=== PATIENT | female | born 1940 | race Caucasian/White ===

== ENCOUNTER 2018-02-25 15:45 | Emergency (ER) | payer OTHER, BC ==
[~2018-02-25] VITALS: Ht 172.7 cm; Wt 93.0 kg
[2018-02-25] MEDS ORDERED: AUGMENTIN 875-1 EACH PO (18:04)
[2018-02-25 18:11] VITALS: BP 144/76
== END 2018-02-25 18:23 | disposition home or self-care (01) ==
LOC: ER 15:45
DX: S81.852A Open bite, left lower leg, initial encounter (principal); W54.0XXA Bitten by dog, initial encounter; Z96.652 Presence of left artificial knee joint; Z86.73 Personal history of transient ischemic attack (TIA), and cerebral infarction without residual deficits; Y93.89 Activity, other specified; Y92.89 Other specified places as the place of occurrence of the external cause; Y99.8 Other external cause status; S81.832A Puncture wound without foreign body, left lower leg, initial encounter

== ENCOUNTER → 2018-03-03 | Outpatient (CLI) | payer OTHER, BC ==
[~2018-03-03] MED LIST: AUGMENTIN 875-1 EACH PO
== END ==
LOC: HYPER 07:05
DX: S71.112A Laceration without foreign body, left thigh, initial encounter (principal); S81.801A Unspecified open wound, right lower leg, initial encounter; I10 Essential (primary) hypertension; E78.4 Other hyperlipidemia; Z86.73 Personal history of transient ischemic attack (TIA), and cerebral infarction without residual deficits; Z96.652 Presence of left artificial knee joint; Z90.710 Acquired absence of both cervix and uterus; Z98.49 Cataract extraction status, unspecified eye; X58.XXXA Exposure to other specified factors, initial encounter; W54.0XXA Bitten by dog, initial encounter; Y93.89 Activity, other specified; Y92.89 Other specified places as the place of occurrence of the external cause; Y99.8 Other external cause status

== ENCOUNTER → 2018-03-18 | Outpatient (CLI) | payer OTHER, BC | LOC: HYPER 06:52 | DX: S71.152A Open bite, left thigh, initial encounter (principal); S81.851A Open bite, right lower leg, initial encounter; I10 Essential (primary) hypertension; E78.4 Other hyperlipidemia; Z86.73 Personal history of transient ischemic attack (TIA), and cerebral infarction without residual deficits; Z90.710 Acquired absence of both cervix and uterus; W54.0XXA Bitten by dog, initial encounter; Y93.89 Activity, other specified; Y92.89 Other specified places as the place of occurrence of the external cause; Y99.8 Other external cause status ==

== ENCOUNTER 2018-04-23 00:47 | Emergency (ER) | payer OTHER, BC ==
[~2018-04-23] VITALS: Ht 172.7 cm; Wt 95.3 kg
[2018-04-23] MEDS ORDERED: MOBIC7.5 MG PO (02:34)
[2018-04-23] MEDS ORDERED: SENNA-DOCUSATE1 EACH PO (02:34)
[2018-04-23] MEDS ORDERED: NORCO 5-325 TA1 EACH PO (02:34)
[2018-04-23 02:59] VITALS: BP 164/81
== END 2018-04-23 03:00 | disposition home or self-care (01) ==
LOC: ER 00:47
DX: S20.212A Contusion of left front wall of thorax, initial encounter (principal); W01.0XXA Fall on same level from slipping, tripping and stumbling without subsequent striking against object, initial encounter; Y93.89 Activity, other specified; Y92.89 Other specified places as the place of occurrence of the external cause; Y99.8 Other external cause status; Z96.652 Presence of left artificial knee joint; Z90.710 Acquired absence of both cervix and uterus; Z86.73 Personal history of transient ischemic attack (TIA), and cerebral infarction without residual deficits